=== PATIENT | female | born 1980 | race Two or more races ===

== ENCOUNTER 2016-09-26 17:09 | Emergency (ER) | payer OTHER ==
[~2016-09-26] VITALS: Ht 167.6 cm; Wt 154.5 kg
[2016-09-26 17:20] VITALS: BP 170/89
--- NOTE | 2016-09-26 17:56 | PHYS DOC ---
General Chief Complaint: VAGINAL BLEEDING Stated Complaint: VAGINAL BLEED/LOWER BACK PAIN Time Seen by MD: 17:15 Source: patient, old records Exam Limitations: no limitations Problems: History of Present Illness Initial Comments Pt is 36/F to ED c/o vaginal bleeding, right flank pain. Pt has h/o irregular menses, states that current period began 09/11 described as "slow" pt reports approximately 4 pads/day the first week. Starting on the , pt says menses increased reportedly changing pads every two hours. ( three days ago) she reports they slowed to 4 pads/day. She thought period concluded yesterday, reports no blood on pads from waking all day. "No bleeding at all yesterday, except for a drop in my urine yesterday evening." Today she says she felt overwhelmingly tired and sleepy, she took a nap and awoke at 1300 bleeding heavily again. Reports numerous clots passed while voiding today. Pt also reports that for the past few days she's had increasing right flank discomfort, mild to moderate described as aching, with concomitant urinary frequency/hesitancy. Pt is has healthy 17 y/o, follows with Dr Tee PCP no [employer]. No measured fevers, no chills/sweats/n/v/d/coagulopathy/cp/sob/DUENAS/focal weakness. No prearrival treatment. ED VS: 97, 70, 170/89, 99% RA Timing/Duration: changing over time (2 wks) Severity/Quality: severe, cramping Location: right flank Radiation: none Activities at Onset: other Prior Genitourinary Problems: similar symptoms (h/o irregular menses, none as severe as current sx) Sexual Rillito History: single partner (monogamous unprotected x 3 yrs) Modifying Factors: worse with urinating Associated Symptoms: lower back pain, polyuria, urinary frequency, other Allergies: Coded Allergies: No Known Drug Allergies (Unverified , 07/25/15) Past Medical History Medical History: other (ovarian cyst, kidney stones, irregular menses) Surgical History: other (tonsils, R oophorectomy) Social History Smoker: non-smoker Alcohol: occasionally Drugs: none Review of Systems Constitutional: denies chills, denies diaphoresis, denies fever, malaise weakness Respiratory: denies cough, denies shortness of breath, denies wheezing Cardiovascular: denies chest pain, denies palpitations, denies syncope Gastrointestinal: denies constipation, denies diarrhea, denies nausea, denies vomiting Genitourinary: see HPI Musculoskeletal: see HPIdenies joint swelling, denies muscle pain, denies neck pain Psychiatric/Neurological: denies headache, denies numbness, denies paresthesia Hematologic/Lymphatic: denies blood clots, denies easy bleeding, denies easy bruising Physical Exam General Appearance: no apparent distress, obese HEENT: PERRL/EOMI, normal ENT inspection Neck: non-tender, supple Cardiovascular/Respiratory: regular rate, rhythm, normal peripheral pulses, no respiratory distress Gastrointestinal: normal bowel sounds, non tender, soft, no organomegaly Rectal: deferred Back: CVA tenderness (L) Extremities: normal range of motion, non-tender (2+ pitting b/l) Neurologic/Psychiatric: towel sewer II-XII nml as tested, no motor/sensory deficits, alert, normal mood/affect, oriented x 3 Skin: normal color, warm/dry Orders, Labs, Meds Pt signed out to Dr Urbano at 1800 shift change. See his documentation for results/disposition. KALLIE LAZO DO Sep 26, 2016 17:56
[2016-09-26] MEDS ORDERED: IV NORMAL SALINE 1,000ML 1,000 ML IV SCH (18:00)
[2016-09-26 18:21] LABS: BASO % 1 % (0-3); EOS # 0.2 x10^3/uL (0.0-0.7); EOS % 2 % (0-3); HEMATOCRIT 41.3 % (36.0-47.0); HEMOGLOBIN 13.6 g/dL (12.0-15.5); LYMPH # 2.9 x10^3/uL (1.0-4.8); LYMPH % 31 % (24-48); MEAN CORPUSCULAR HEMOGLOBIN 27 pg (25-35); MEAN CORPUSCULAR HGB CONC 33 g/dL (31-37); MEAN CORPUSCULAR VOLUME 83 fL (79-100); MONO # 0.6 x10^3/uL (0.0-1.1); MONO % 6 % (0-9); NEUT # 5.7 x10^3uL (1.8-7.7); NEUT % 60 % (31-73); PLATELET COUNT 290 x10^3/uL (140-400); RED BLOOD COUNT 4.95 x10^6/uL (3.50-5.40); RED CELL DISTRIBUTION WIDTH 14.5 % (11.5-14.5); WHITE BLOOD COUNT 9.5 x10^3/uL (4.0-11.0)
[2016-09-26 18:23] LABS: CALCIUM 9.2 mg/dL (8.5-10.1); CREATININE 0.9 mg/dL (0.6-1.0); GFR 71.7; POTASSIUM 3.7 mmol/L (3.5-5.1)
--- NOTE | 2016-09-26 18:36 | RAD ---
Examination: Ultrasound pelvis. HISTORY History of menorrhagia, right ovarian cyst status post fallopian tube removed. COMPARISON None available. FINDINGS The uterus measures 8.9 x 5.6 x 4.6 centimeters. The endometrium measures 6.7 millimeters in thickness. The right ovary could not be identified. The left ovary measures 3.5 x 2.5 x 2.6 centimeters. Small amount of free fluid identified in the cul-de-sac. Examination limited due to patient body habitus. IMPRESSION Small amount of free fluid identified in the pelvis. The right ovary could not be identified. Otherwise unremarkable exam. Electronically signed by: Bill Bennett (Sep 26, 2016 18:35:13)
[2016-09-26 18:52] LABS: BILIRUBIN,URINE NEG (NEG); CLARITY,URINE TURBID; COLOR,URINE YELLOW; GLUCOSE,URINE NEG (NEG)
[2016-09-26 18:53] LABS: BACTERIA,URINE 0 /HPF (0-FEW); NITRITE,URINE NEG (NEG); RBC,URINE >40 /HPF (0-2); SQUAMOUS EPITHELIAL CELL,UR MANY /LPF; UROBILINOGEN,URINE 0.2 mg/dL (0.2 mg/dL)
[2016-09-26] MEDS ORDERED: CEPH-264 PO (19:19)
[2016-09-26] MEDS ORDERED: IV NORMAL SALINE 50ML 50 ML ONE (19:20)
[2016-09-26] MEDS ORDERED: CEFTRIAXONE SODIUM 1 GM VIAL IV ONE (19:20)
[2016-09-26] MEDS ORDERED: CEFTRIAXONE SODIUM 1 GM in IV NORMAL SALINE 50ML 50 ML IV ONE (19:30)
[2016-09-26] MEDS ORDERED: [UNRECOGNIZED DRUG - CODE] PO (20:45)
[2016-09-26] MEDS ORDERED: ESTROGENS, CONJUGATED 25 MG VIAL IM ONE (21:30)
[2016-09-26] MEDS ORDERED: OXYCODONE/APAP 10/325 TABLET. ONE (23:22)
== END 2016-09-26 23:34 | disposition home or self-care (01) ==
LOC: ER 17:09
DX: N93.8 Other specified abnormal uterine and vaginal bleeding (principal); R10.9 Unspecified abdominal pain; Z90.721 Acquired absence of ovaries, unilateral
CPT/HCPCS: 36415; 76856; 80048; 81001; 84702; 85027; 85610; 85730; 87086; 96361; 96365; 96372; 99285; J0696; J1410; J7030

== ENCOUNTER → 2016-09-30 | Outpatient (CLI) | payer OTHER ==
[2016-09-26 17:20] VITALS: BP 170/89
[~2016-09-30] MED LIST: CEPH-264 PO; [UNRECOGNIZED DRUG - CODE] PO
[2016-09-30 10:28] LABS: ALBUMIN 3.9 g/dL (3.4-5.0); ALBUMIN/GLOBULIN RATIO 0.9 (1.0-1.7); CALCIUM 9.2 mg/dL (8.5-10.1); GFR 63.5; POTASSIUM 4.1 mmol/L (3.5-5.1); TOTAL BILIRUBIN 0.8 mg/dL (0.2-1.0); TOTAL PROTEIN 8.3 g/dL (6.4-8.2)
[2016-09-30 13:25] LABS: BASO % 0 % (0-3); EOS # 0.2 x10^3/uL (0.0-0.7); EOS % 3 % (0-3); HEMATOCRIT 45.8 % (36.0-47.0); HEMOGLOBIN 14.9 g/dL (12.0-15.5); LYMPH # 2.9 x10^3/uL (1.0-4.8); LYMPH % 36 % (24-48); MEAN CORPUSCULAR HEMOGLOBIN 27 pg (25-35); MEAN CORPUSCULAR HGB CONC 33 g/dL (31-37); MEAN CORPUSCULAR VOLUME 84 fL (79-100); MONO # 0.5 x10^3/uL (0.0-1.1); MONO % 7 % (0-9); NEUT # 4.5 x10^3uL (1.8-7.7); NEUT % 54 % (31-73); PLATELET COUNT 272 x10^3/uL (140-400); RED BLOOD COUNT 5.48 x10^6/uL (3.50-5.40); RED CELL DISTRIBUTION WIDTH 14.4 % (11.5-14.5); WHITE BLOOD COUNT 8.2 x10^3/uL (4.0-11.0)
[2016-09-30 18:07] LABS: DHEA SO4 228.2 ug/dL (84.8-378.0); ESTRADIOL LEVEL 97.2 pg/mL (.); FSH 5.5 mIU/mL (.); LUTEINIZING HORMONE 8.2 mIU/mL (.); PROLACTIN 24.4 ng/mL (4.8-23.3)
[2016-09-30 19:32] LABS: THYROID STIM HORMONE (TSH) 2.442 uIU/mL (0.358-3.740)
[2016-10-01 01:09] LABS: HEMOGLOBIN A1C 5.7 % (4.8-5.6)
[2016-10-01 14:11] LABS: INSULIN LEVEL 28.2 uIU/mL (2.6-24.9)
== END | disposition home or self-care (01) ==
LOC: LAB 08:33
PROVIDERS: ATTEND Obstetrics & Gynecology
DX: N93.8 Other specified abnormal uterine and vaginal bleeding (principal)
CPT/HCPCS: 36415; 80053; 80061; 82627; 82670; 83001; 83002; 83036; 83525; 84146; 84402; 84403; 84443; 85027

== ENCOUNTER 2017-01-23 17:32 | Emergency (ER) | payer OTHER ==
[~2017-01-23] VITALS: Ht 167.6 cm; Wt 154.5 kg
[~2017-01-23 17:32] MED LIST changes: +[UNRECOGNIZED DRUG - CODE] PO; -[UNRECOGNIZED DRUG - CODE] PO
[2017-01-23 17:46] VITALS: BP 160/75
[2017-01-23] MEDS ORDERED: traMADol 50 MG TABLET PO ONE (18:30)
[2017-01-23] MEDS ORDERED: SULF1TAB24 PO (19:09)
[2017-01-23] MEDS ORDERED: TRAM-48 PO (19:09)
--- NOTE | 2017-01-23 19:09 | PHYS DOC ---
Past History Past Medical History: Ovarian Cyst Past Surgical History: Other Alcohol Use: Occasionally Drug Use: None Adult General Chief Complaint Chief Complaint: LOWER EXTREMITY SWELLING HPI HPI Patient is a 36-year-old female who presents to the ER today secondary to pain and swelling to her right pretibial region that's been there for approximately 2 -3 weeks now. Patient reports that she saw her PCP about 2 weeks ago and was told that she might have a small clot in the anterior tibial area. At that time she was also diagnosed with urinary tract infection and was started on antibiotic which the patient believes was Keflex. Patient presents here today secondary to the pain being persistent and the rash not resolving. Patient reports that she works at a [employer] all day is on her feet and she reports today she was unable to work secondary to the pain. Patient reports that she is concerned that she might have a blood clot to that area. Patient denies any other symptomatology. Patient has any recent fevers shakes chills nausea vomiting diarrhea chest pain shortness of breath cough cold runny nose. Patient denies any history of DVT or PE in the past. Review of systems: Constitutional: Denies fever or chills Eyes: Denies change in visual acuity, redness, or eye pain HENT: Denies nasal congestion or sore throat All other review systems are negative except as documented in the history of present illness portion. Physical exam: Constitutional: Well developed, well nourished, no acute distress, non-toxic appearance. HENT: Normocephalic, atraumatic, bilateral external ears normal, nose normal. Eyes: EOMI, conjunctiva normal, no discharge. Neck: Normal range of motion, no tenderness, supple, no stridor. Cardiovascular:Heart rate regular rhythm Lungs & Thorax: Bilateral breath sounds clear to auscultation no respiratory distress Abdomen: Bowel sounds normal, soft, no tenderness, no masses, no pulsatile masses. Skin: Patient with 2 discrete papular lesions that are raised erythematous and tender with no lymphangitic streaking. It is unclear whether not this is a possible folliculitis. It does not appear to be an abscess. Rash is not highly consistent was erythema nodosum. No significant warmth. Extremities: No tenderness, no cyanosis, no clubbing, ROM intact, no edema. Neurologic: Alert and oriented X 3, normal motor function, normal sensory function, no focal deficits noted. Psychologic: Affect normal, judgement normal, mood normal. Patient is concerned that this might be a blood clot. I discussed with the patient that the pretibial region is an extremely unlikely area for a significant DVT. Patient does make the point that if there is a clot in that area could she possibly have clots in other parts of her legs. Patient is here requesting a ultrasound of her right lower 70 to put her mind or rest. I have advised patient that this is highly unlikely although not impossible. Given her concerns we have obtained an ultrasound of her right lower 70 rule out DVT. Ultrasound of right lower 70 reveals no DVT. Assessment and plan This is a 36-year-old female who presents with a rash that is nodular papular unclear etiology. This might be a folliculitis. We will start her on Keflex and will put her on Ultram to assist her with her pain. Patient's ultrasound was negative for DVT. Patient be discharged with instructions to follow-up with her primary care physician for further evaluation and possible dermatological referral. Current Medications Current Medications Current Medications Medications (Trade) Dose Ordered Sig/Jasmeet Start Time Stop Time Status Last Admin Dose Admin Tramadol HCl (Ultram) 50 mg 1X ONCE 01/23/17 18:30 01/23/17 18:31 DC 01/23/17 18:20 50 MG Allergies Allergies Allergies Coded Allergies Type Severity Reaction Last Updated Verified No Known Drug Allergies 07/25/15 No Current Patient Data Vital Signs Vital Signs Date Time Temp Pulse Resp B/P (MAP) Pulse Ox O2 Delivery O2 Flow Rate FiO2 01/23/17 17:46 98.5 79 16 97 EKG EKG [] Radiology/Procedures Radiology/Procedures [] Course & Med Decision Making Course & Med Decision Making Pertinent Labs and Imaging studies reviewed. (See chart for details) [] Dragon Disclaimer Dragon Disclaimer This chart was dictated in whole or in part using Voice Recognition software in a busy, high-work load, and often noisy Emergency Department environment. It may contain unintended and wholly unrecognized errors or omissions. Departure Departure: Impression: Primary Impression: Skin rash Disposition: HOME, SELF-CARE Condition: STABLE Referrals: MOISES MEJIAS MD (PCP) Patient Instructions: Folliculitis, Rash Additional Instructions: Thank you for allowing us to participate in your care today. Followup with your primary care physician in 3 days if your symptoms do not improve. Call your Primary Doctor tomorrow and inform them of your visit today. If you do not have a primary care provider you can ask for a list of our primary care providers. Return to the emergency department you have any new or concerning findings. This should be evaluated by the primary care physician and any necessary consulting services for continued management within a few days after discharge. Return to emergency room if you have any new or concerning symptoms including but not limited to fever, chills, nausea, vomiting, intractable pain, any new rashes, chest pain, shortness of air, uncontrolled bleeding, difficulty breathing, and/or vision loss. You may have been prescribed medication that can change in your level of thinking and ability to operate machinery. These medications include hydrocodone and Ativan. Also, Benadryl has been known to do this as well. Be sure to check with your pharmacist and ask if the medications you've prescribed can affect your level of consciousness. I recommend not operating heavy machinery or driving while on medication such as these. The cause of the nodules on your leg are unclear. This may be secondary to a rheumatological issue versus infectious issue. As we discussed there is a small possibility this could be erythema nodosum. We will initiate therapy for a possible folliculitis with Bactrim and have a follow-up with her primary care doctor to see if she can refer you to a rate reviewer for reevaluation if the rash persists. Scripts Tramadol Hcl (ULTRAM) 50 Mg Tablet 50 MG PO PRN Q6HRS Y for PAIN, #20 TAB Prov: GABBY DENISE MD 01/23/17 Sulfamethoxazole/Trimethoprim (BACTRIM DS TABLET) 1 Each Tablet 2 TAB PO BID, #40 TAB Prov: GABBY DENISE MD 01/23/17 GABBY DENISE MD Jan 23, 2017 19:09
--- NOTE | 2017-01-23 19:23 | RAD ---
Right leg venous Doppler study: Clinical indications: Right leg swelling and pain for 2 weeks. Findings: Duplex sonography (including payton scale evaluation and color flow and waveform spectral analysis) of the proximal aspect of the greater saphenous vein and proximal aspect of the profunda femoral vein and the entire length of the common femoral and superficial femoral and popliteal veins and the tibioperoneal trunk and the proximal aspect of the posterior tibial and peroneal veins of the right leg was performed. Normal compressibility, augmentation of color Doppler flow after calf compression, and respiratory variation of Doppler flow is seen. Thus, there are no sonographic findings of deep venous thrombosis within these veins. Impression: There are no sonographic findings of deep venous thrombosis within the veins discussed above of the right lower extremity. Electronically signed by: Stephan Marcelo MD (01/23/2017 7:20 PM) [facility]
== END 2017-01-23 19:55 | disposition home or self-care (01) ==
LOC: ER 17:32
DX: R21 Rash and other nonspecific skin eruption (principal); M79.661 Pain in right lower leg; R22.41 Localized swelling, mass and lump, right lower limb
CPT/HCPCS: 93971; 99284-25

== ENCOUNTER 2017-06-08 14:20 | Emergency (ER) | payer OTHER ==
[~2017-06-08 14:20] MED LIST changes: +SULF1TAB24 PO; +TRAM-48 PO
[2017-06-08 15:34] LABS: INFLUENZA A PATIENT NEGATIVE (NEGATIVE); INFLUENZA B PATIENT NEGATIVE (NEGATIVE)
[2017-06-08] MEDS ORDERED: ONDA4TAB10 PO (16:44)
[2017-06-08] MEDS ORDERED: NAPR-683 PO (16:44)
--- NOTE | 2017-06-08 16:44 | PHYS DOC ---
Past History Past Medical History: Ovarian Cyst Past Surgical History: Other Alcohol Use: Occasionally Drug Use: Marijuana Social History Narrative: none recent Adult General Chief Complaint Chief Complaint: FLU SYMPTOM HPI HPI 36-year-old male patient complaining of nasal congestion and earache and sore throat with nausea and myalgia since yesterday associated with subjective fever and generalized weakness. Patient denies vomiting, diarrhea, sick contact, urinary symptom, cough and shortness of breath and chest pain. Patient states she had the same symptom couple weeks ago that improved with rest. Review of Systems Review of Systems Constitutional: Reports fever and chills Eyes: Denies change in visual acuity, redness, or eye pain [] HENT: Reports nasal congestion and sore throat and earache Respiratory: Denies cough or shortness of breath [] Cardiovascular: No additional information not addressed in HPI [] GI: Denies abdominal pain, vomiting, bloody stools or diarrhea , reports nausea[ ] : Denies dysuria or hematuria [] Musculoskeletal: Denies back pain or joint pain , reports myalgia[] Integument: Denies rash or skin lesions [] Neurologic: Denies headache, focal weakness or sensory changes [] Endocrine: Denies polyuria or polydipsia [] All other systems were reviewed and found to be within normal limits, except as documented in this note. Allergies Allergies Allergies Coded Allergies Type Severity Reaction Last Updated Verified No Known Drug Allergies 07/25/15 No Physical Exam Physical Exam Constitutional: Well developed, well nourished, mild distress, non-toxic appearance, morbid obesity. [] HENT: Normocephalic, atraumatic, bilateral external ears normal, oropharynx moist, no oral exudates, nose normal. [] Eyes: PERRLA, EOMI, conjunctiva normal, no discharge. [] Neck: Normal range of motion, no tenderness, supple, no stridor. [] Cardiovascular:Heart rate regular rhythm, no murmur [] Lungs & Thorax: Bilateral breath sounds clear to auscultation [] Abdomen: Bowel sounds normal, soft, no tenderness, no masses, no pulsatile masses. [] Skin: Warm, dry, no erythema, no rash. [] Back: No tenderness, no CVA tenderness. [] Extremities: No tenderness, no cyanosis, no clubbing, ROM intact, no edema. [] Neurologic: Alert and oriented X 3, normal motor function, normal sensory function, no focal deficits noted. [] Psychologic: Affect normal, judgement normal, mood normal. [] Current Patient Data Vital Signs Vital Signs Date Time Temp Pulse Resp B/P (MAP) Pulse Ox O2 Delivery O2 Flow Rate FiO2 06/08/17 14:20 97.9 68 18 95 Room Air Lab Results Laboratory Tests Test 06/08/17 14:54 Influenza Type A (Rapid) Negative (NEGATIVE) Influenza Type B (Rapid) Negative (NEGATIVE) EKG EKG [] Radiology/Procedures Radiology/Procedures [] Course & Med Decision Making Course & Med Decision Making Pertinent Labs reviewed. (See chart for details) [] Dragon Disclaimer Dragon Disclaimer This electronic medical record was generated, in whole or in part, using a voice recognition dictation system. Departure Departure: Impression: Primary Impression: Viral illness Additional Impression: Nausea Disposition: HOME, SELF-CARE (At 1642) Condition: STABLE Referrals: MOISES MEJIAS MD (PCP) Patient Instructions: Viral Syndrome Additional Instructions: Get plenty of liquids Follow-up with your primary care physician in 3-5 days or return to ER if not getting better Scripts Ondansetron (ZOFRAN ODT) 4 Mg Tab.rapdis 4 MG PO TID PRN Y for NAUSEA, #12 Prov: HOME MALONE MD 06/08/17 Naproxen (NAPROSYN) 500 Mg Tablet 500 MG PO BID, #14 Prov: HOME MALONE MD 06/08/17 Problem Qualifiers HOME MALONE MD Jun 08, 2017 16:44
[2017-06-08 16:56] VITALS: BP 142/91
== END 2017-06-08 16:56 | disposition home or self-care (01) ==
LOC: ER 14:20
DX: B34.9 Viral infection, unspecified (principal); R53.1 Weakness; F12.10 Cannabis abuse, uncomplicated
CPT/HCPCS: 87804; 99284

== ENCOUNTER 2018-01-15 23:27 | Emergency (ER) | payer SELFPAY ==
[~2018-01-15] VITALS: Ht 165.1 cm; Wt 158.2 kg
[~2018-01-15 23:27] MED LIST changes: +NAPR-683 PO; +ONDA4TAB10 PO
--- NOTE | 2018-01-15 23:30 | ED.ADGEN ---
Past History Past Medical History: Kidney Stones, Ovarian Cyst, UTI Past Surgical History: Other Alcohol Use: Occasionally Drug Use: Marijuana Adult General Chief Complaint Chief Complaint ".. I got this severe pain in my Lt. flank.. it feels like a kidney stone... I ve had them twice before... and I had a UTI with them... I ve also had some diarrhea today.. and vomited twice..." My last kidney stones were always on my right side.." HPI HPI Patient is a 37 year old female who presents with above hx and complaints of severe left flank pain. Patient reports vomiting 2 and episodes of diarrhea. Patient denies any intake bad food. Her last meal consisted of Spreadshirt. Patient was at the [employer] yesterday drinking beer and eating at [employer]. No recent travel. No specific ill contacts. Patient denies any trauma. Patient denies any specific ill contacts. Patient denies any vaginal discharge. Patient' s ministration has just ended. History of colitis or ulcerative colitis or irritable bowel or diverticular disease. Has hx of ovarian cyst. Review of Systems Review of Systems Constitutional: Denies fever or chills [] Eyes: Denies change in visual acuity, redness, or eye pain [] HENT: Denies nasal congestion or sore throat [] Respiratory: Denies cough or shortness of breath [] Cardiovascular: No additional information not addressed in HPI [] GI: Complaints of abdominal pain, nausea, vomiting,and diarrhea [] : Denies dysuria or hematuria [] Musculoskeletal: Lt flank pain. Integument: Denies rash or skin lesions [] Neurologic: Denies headache, focal weakness or sensory changes [] Endocrine: Denies polyuria or polydipsia [] All other systems were reviewed and found to be within normal limits, except as documented in this note. Family History Family History Noncontributory Current Medications Current Medications Current Medications Medications (Trade) Dose Ordered Sig/Jasmeet Start Time Stop Time Status Last Admin Dose Admin Famotidine (Pepcid Vial) 20 mg 1X ONCE 01/16/18 00:00 01/16/18 00:58 DC 01/16/18 00:22 20 MG Ketorolac Tromethamine (Toradol) 30 mg 1X ONCE 01/16/18 00:15 01/16/18 00:58 DC 01/16/18 00:17 30 MG Lactated Ringer's 1,000 ml @ 1,000 mls/hr Q1H 01/15/18 23:54 01/16/18 00:57 DC 01/15/18 00:14 1,000 MLS/HR Ondansetron HCl (Zofran) 4 mg 1X ONCE 01/16/18 00:00 01/16/18 00:58 DC 01/16/18 00:19 4 MG Tamsulosin HCl (Flomax) 0.4 mg STK-MED ONCE 01/16/18 02:59 01/16/18 03:19 DC Trimethoprim/ Sulfamethoxazole (Bactrim Ds) 1 tab 1X ONCE 01/16/18 00:00 01/16/18 00:58 DC 01/16/18 00:13 1 TAB Allergies Allergies Allergies Coded Allergies Type Severity Reaction Last Updated Verified No Known Drug Allergies 07/25/15 No Physical Exam Physical Exam Constitutional: In acute distress, non-toxic appearance. [] HENT: Normocephalic, atraumatic, bilateral external ears normal, oropharynx moist, no oral exudates, nose normal. [] Eyes: PERRLA, EOMI, conjunctiva normal, no discharge. [] Neck: Normal range of motion, no tenderness, supple, no stridor. [] Cardiovascular:Heart rate regular rhythm, no murmur [] Lungs & Thorax: Bilateral breath sounds clear to auscultation [] Abdomen: Bowel sounds normal, soft, no tenderness, no masses, no pulsatile masses. [] Obese. Skin: Warm, dry, no erythema, no rash. [] Back: No tenderness, Lt CVA tenderness. [] Extremities: No tenderness, no cyanosis, no clubbing, ROM intact, no edema. [] Neurologic: Alert and oriented X 3, normal motor function, normal sensory function, no focal deficits noted. [] Psychologic: Affect anxious, judgement normal, mood normal. [] Current Patient Data Vital Signs Vital Signs Date Time Temp Pulse Resp B/P (MAP) Pulse Ox O2 Delivery O2 Flow Rate FiO2 01/16/18 03:08 57 20 145/97 (113) 96 Room Air 01/15/18 23:27 98.5 Lab Results Laboratory Tests Test 01/15/18 22:55 01/15/18 23:34 01/15/18 23:46 01/16/18 00:40 POC Urine HCG, Qualitative hcg negative (Negative) Urine Collection Type Unknown Urine Color Yellow Urine Clarity Hazy Urine pH 5.5 Urine Specific Hoffmeister >=1.030 Urine Protein Trace (NEG-TRACE) Urine Glucose (UA) Neg mg/dL (NEG) Urine Ketones (Stick) Neg mg/dL (NEG) Urine Blood Large (NEG) Urine Nitrite Neg (NEG) Urine Bilirubin Neg (NEG) Urine Urobilinogen Dipstick 0.2 mg/dL (0.2 mg/dL) Urine Leukocyte Esterase Trace (NEG) Urine RBC Occ /HPF (0-2) Urine WBC 11-20 /HPF (0-4) Urine Squamous Epithelial Cells Few /LPF Urine Bacteria Few /HPF (0-FEW) Urine Opiates Screen Neg (NEG) Urine Methadone Screen Neg (NEG) Urine Barbiturates Neg (NEG) Urine Phencyclidine Screen Neg (NEG) Urine Amphetamine/Methamphetamine Neg (NEG) Urine Benzodiazepines Screen Neg (NEG) Urine Cocaine Screen Neg (NEG) Urine Cannabinoids Screen Neg (NEG) Urine Ethyl Alcohol Neg (NEG) Sodium Level 143 mmol/L (136-145) Potassium Level 3.8 mmol/L (3.5-5.1) Chloride Level 106 mmol/L (98-107) Carbon Dioxide Level 26 mmol/L (21-32) Anion Gap 11 (6-14) Blood Urea Nitrogen 11 mg/dL (7-20) Creatinine 0.9 mg/dL (0.6-1.0) Estimated GFR (Cockcroft-Gault) 71.3 Glucose Level 125 mg/dL (70-99) H Calcium Level 8.7 mg/dL (8.5-10.1) Total Bilirubin 0.5 mg/dL (0.2-1.0) Direct Bilirubin 0.1 mg/dL (0.0-0.2) Aspartate Amino Transferase (AST) 30 U/L (15-37) Alanine Aminotransferase (ALT) 41 U/L (14-59) Alkaline Phosphatase 66 U/L (46-116) Total Protein 7.6 g/dL (6.4-8.2) Albumin 3.6 g/dL (3.4-5.0) Lipase 133 U/L (73-393) White Blood Count 12.0 x10^3/uL (4.0-11.0) H Red Blood Count 5.00 x10^6/uL (3.50-5.40) Hemoglobin 13.8 g/dL (12.0-15.5) Hematocrit 41.0 % (36.0-47.0) Mean Corpuscular Volume 82 fL (79-100) Mean Corpuscular Hemoglobin 28 pg (25-35) Mean Corpuscular Hemoglobin Concent 34 g/dL (31-37) Red Cell Distribution Width 14.1 % (11.5-14.5) Platelet Count 321 x10^3/uL (140-400) Neutrophils (%) (Auto) 78 % (31-73) H Lymphocytes (%) (Auto) 15 % (24-48) L Monocytes (%) (Auto) 6 % (0-9) Eosinophils (%) (Auto) 1 % (0-3) Basophils (%) (Auto) 1 % (0-3) Neutrophils # (Auto) 9.3 x10^3uL (1.8-7.7) H Lymphocytes # (Auto) 1.8 x10^3/uL (1.0-4.8) Monocytes # (Auto) 0.7 x10^3/uL (0.0-1.1) Eosinophils # (Auto) 0.1 x10^3/uL (0.0-0.7) Basophils # (Auto) 0.1 x10^3/uL (0.0-0.2) Prothrombin Time 10.3 SEC (9.4-11.4) Prothrombin Time INR 1.0 (0.9-1.1) PTT 23 SEC (23-33) EKG EKG [] Radiology/Procedures Radiology/Procedures My interpretation of Ab. film shows no free air under diaphragm. Non acute cardiopulmonary findings. Lt kidney appears enlarged. Non-specific bowel gas pattern. My interpretation of CT abd. shows distal lt stone Lt. . Mild hydro nephrosis. Course & Med Decision Making Course & Med Decision Making Pertinent Labs and Imaging studies reviewed. (See chart for details). Push fluids. Save stone if passed. Push Vit. C drinks. Take Bactrim DS twice a way x 7 days. Follow up with primary and urology. Zofran 8 up to 4 x day for nausea and vomiting. Return if any concerns. [] Final Impression Final Impression 1. Nausea, vomiting and diarrhea 2. lt. Renal colic 3. Hematuria/ UTI[] 4. Leukocytosis 5. DM- Elevated Glucose 125 Dragon Disclaimer Dragon Disclaimer This electronic medical record was generated, in whole or in part, using a voice recognition dictation system. DELPHINE TALAVERA MD Jan 15, 2018 23:30
[2018-01-15] MEDS ORDERED: IV RINGERS SOLUTION,LACTATED 1,000 ML IV SCH (23:54)
[2018-01-16] MEDS ORDERED: FAMOTIDINE 20 MG/2 ML VIAL IVP ONE
[2018-01-16] MEDS ORDERED: SMZ/TMP 800/160MG TABLET. PO ONE
[2018-01-16] MEDS ORDERED: ONDANSETRON PF 4 MG/2 ML VIAL. IV ONE
[2018-01-16] MEDS ORDERED: KETOROLAC 30 MG/ML VIAL. IV ONE (00:15)
[2018-01-16 00:18] LABS: ALBUMIN 3.6 g/dL (3.4-5.0); CALCIUM 8.7 mg/dL (8.5-10.1); CREATININE 0.9 mg/dL (0.6-1.0); DIRECT BILIRUBIN 0.1 mg/dL (0.0-0.2); GFR 71.3; TOTAL BILIRUBIN 0.5 mg/dL (0.2-1.0); TOTAL PROTEIN 7.6 g/dL (6.4-8.2)
[2018-01-16 00:18] LABS: BARBITURATES NEG (NEG); BENZODIAZEPINES NEG (NEG); CANNABINOIDS NEG (NEG); COCAINE NEG (NEG); METHADONE NEG (NEG); OPIATES NEG (NEG); PHENCYCLIDINE NEG (NEG)
[2018-01-16 00:19] LABS: BILIRUBIN,URINE NEG (NEG); CLARITY,URINE HAZY; COLOR,URINE YELLOW; GLUCOSE,URINE NEG (NEG); NITRITE,URINE NEG (NEG); RBC,URINE OCC /HPF (0-2); UROBILINOGEN,URINE 0.2 mg/dL (0.2 mg/dL)
[2018-01-16 00:20] LABS: BACTERIA,URINE FEW /HPF (0-FEW); SQUAMOUS EPITHELIAL CELL,UR FEW /LPF
[2018-01-16 00:21] LABS: AMPHETAMINE/METHAMPHETAMINE NEG (NEG)
[2018-01-16 00:21] LABS: POTASSIUM 3.8 mmol/L (3.5-5.1)
[2018-01-16 00:58] LABS: BASO # 0.1 x10^3/uL (0.0-0.2); BASO % 1 % (0-3); EOS # 0.1 x10^3/uL (0.0-0.7); EOS % 1 % (0-3); HEMOGLOBIN 13.8 g/dL (12.0-15.5); LYMPH # 1.8 x10^3/uL (1.0-4.8); LYMPH % 15 % (24-48); MEAN CORPUSCULAR HEMOGLOBIN 28 pg (25-35); MEAN CORPUSCULAR HGB CONC 34 g/dL (31-37); MEAN CORPUSCULAR VOLUME 82 fL (79-100); MONO # 0.7 x10^3/uL (0.0-1.1); MONO % 6 % (0-9); NEUT # 9.3 x10^3uL (1.8-7.7); NEUT % 78 % (31-73); PLATELET COUNT 321 x10^3/uL (140-400); RED CELL DISTRIBUTION WIDTH 14.1 % (11.5-14.5)
--- NOTE | 2018-01-16 02:38 | RAD ---
CT abdomen and pelvis without contrast COMPARISON: CT abdomen and pelvis 07/25/2015 TECHNIQUE: Multiple CT images of the abdomen and pelvis were obtained without contrast. *One or more of the following individualized dose reduction techniques were utilized for this examination: 1. Automated exposure control. 2. Adjustment of the mA and/or kV according to patient size. 3. Use of iterative reconstruction technique. FINDINGS: Heart size is normal. Visualized lung bases are clear. Evaluation of the solid abdominal pelvic viscera, lymphadenopathy and vasculature is limited in the absence of intravenous contrast. Mild hepatic steatosis. Gallbladder, spleen, adrenal glands, and pancreas are grossly unremarkable. There is a 3 mm obstructive calculus in the left UVJ series 2/image 137 with mild upstream hydroureter nephrosis. 2 mm obstructive calculus in the superior pole the left kidney. A few nonobstructive right renal calculi, largest in the inferior pole measuring 3 mm series 2/image 69. No right hydroureter nephrosis. Abdominal aorta normal in caliber. Small and large bowel loops are normal in caliber without obstruction. Urinary bladder decompressed. Uterus and adnexa grossly unremarkable. IMPRESSION: 1. 3 mm obstructive left UVJ calculus with mild upstream hydroureteronephrosis. 2. Additional nonobstructive bilateral nephrolithiasis. 3. Hepatic steatosis. Electronically signed by: Robert Holman MD (01/16/2018 2:34 AM) [facility]
[2018-01-16] MEDS ORDERED: HYDR-79 PO (02:51)
[2018-01-16] MEDS ORDERED: ONDA8TAB12 PO (02:51)
[2018-01-16] MEDS ORDERED: SULF1TAB24 PO (02:51)
[2018-01-16] MEDS ORDERED: TAMSULOSIN 0.4 MG CAP.ER.24H. PO ONE ×2 (02:59→03:00)
[2018-01-16 03:08] VITALS: BP 145/97
--- NOTE | 2018-01-16 08:28 | RAD ---
EXAM:ACUTE ABDOMEN SERIES DATE: 01/15/2018 11:54 PM CLINICAL INDICATION: left flank pain, low pelvic pain, hx kidney stone on the right
diarrhea COMPARISON: None. FINDINGS: Chest: The heart is not enlarged. Mediastinal and hilar contours are normal. No focal parenchymal airspace opacity. No pleural effusion or pneumothorax. Abdomen: No abnormal small or large bowel dilatation to suggest bowel obstruction. A few scattered calcifications projecting over the pelvis, possibly pelvic phleboliths although ureteral calculi are not excluded. No abnormal soft tissue mass effect. No evidence for free intraperitoneal gas. IMPRESSION: 1. No radiographic evidence for acute cardiopulmonary process. 2. A few scattered calcifications projecting over the pelvis, possibly pelvic phleboliths although ureteral calculi are not excluded. 3. No evidence for bowel obstruction. Electronically signed by: Barry Arana MD (01/16/2018 8:25 AM) [facility]
[2018-01-17] MEDS ORDERED: PRED15SO46 PO (22:17)
[2018-01-17] MEDS ORDERED: CEPH500C PO (22:17)
== END 2018-01-16 03:15 | disposition home or self-care (01) ==
LOC: ER 23:27
DX: N13.2 Hydronephrosis with renal and ureteral calculous obstruction (principal); D72.829 Elevated white blood cell count, unspecified; E11.9 Type 2 diabetes mellitus without complications; N39.0 Urinary tract infection, site not specified; R19.7 Diarrhea, unspecified; Z87.440 Personal history of urinary (tract) infections; Z87.442 Personal history of urinary calculi
CPT/HCPCS: 36415; 74022; 74176; 80048; 80076; 80307; 81001; 81025; 83690; 85025; 85610; 85730; 87086; 96361; 96374; 96375; 99285; J1885; J2405; J7120; S0028; G0479

== ENCOUNTER 2018-01-17 21:20 | Emergency (ER) | payer SELFPAY ==
[~2018-01-17] VITALS: Ht 165.1 cm; Wt 158.8 kg
[~2018-01-17 21:20] MED LIST changes: +HYDR-79 PO; +ONDA8TAB12 PO
--- NOTE | 2018-01-17 21:58 | PHYS DOC ---
Past History Past Medical History: Kidney Stones, Ovarian Cyst, UTI Past Surgical History: Other Alcohol Use: Occasionally Drug Use: None Adult General Chief Complaint Chief Complaint: ALLERGIC REACTION HPI HPI Patient is a 37 year old female who presents with complaint of mouth pain. The patient states that she was seen 2 days ago in the emergency department where she was treated for urinary tract infection and a left ureteral stone. Patient was discharged on Vicoprofen, Zofran, and Bactrim. Patient states that she last took Bactrim this morning. Patient states throughout the day she has had worsening burning pain to her tongue and mouth and states that he has become very difficult for her to eat due to the pain. Patient states that she has had a similar episode in the past but did not associate this with the medication that she had taken. Patient has not noticed any rash or open sores on her skin or in her mouth. Patient denies any associated fever. Patient states that since her visit she feels that she has likely passed her stone. Patient states however that she is having dysuria at this time. Review of Systems Review of Systems Constitutional: Denies fever or chills [] Eyes: Denies change in visual acuity, redness, or eye pain [] HENT: Sore tongue, denies nasal congestion[] Respiratory: Denies cough or shortness of breath [] Cardiovascular: Denies chest pain or edema[] GI: Denies abdominal pain, nausea, vomiting, bloody stools or diarrhea [] : Dysuria, denies hematuria[] Musculoskeletal: Denies back pain or joint pain [] Integument: Denies rash or skin lesions [] Neurologic: Denies headache, focal weakness or sensory changes [] All other systems were reviewed and found to be within normal limits, except as documented in this note. Allergies Allergies Allergies Coded Allergies Type Severity Reaction Last Updated Verified No Known Drug Allergies 07/25/15 No Physical Exam Physical Exam Constitutional: Alert, afebrile, appears in mild to moderate discomfort. [] HENT: Normocephalic, atraumatic, bilateral external ears normal, oropharynx moist, no discreet bullous lesions or open sores of the mucous membranes, tongue is tender to light palpation, no oral exudates, nose normal. [] Eyes: PERRLA, EOMI, conjunctiva normal, no discharge. [] Neck: Normal range of motion, no tenderness, supple, no stridor. [] Cardiovascular:Heart rate regular rhythm, no murmur [] Lungs & Thorax: Bilateral breath sounds clear to auscultation [] Abdomen: Bowel sounds normal, soft, no tenderness, no masses, no pulsatile masses. [] Skin: Warm, dry, no erythema, no rash. [] Back: No tenderness, no CVA tenderness. [] Extremities: No tenderness, no cyanosis, no clubbing, ROM intact, no edema. [] Neurologic: Alert and oriented X 3, normal motor function, normal sensory function, no focal deficits noted. [] Current Patient Data Vital Signs Vital Signs Date Time Temp Pulse Resp B/P (MAP) Pulse Ox O2 Delivery O2 Flow Rate FiO2 01/17/18 21:21 99.6 82 20 100 Room Air Lab Results Not performed EKG EKG Not performed[] Radiology/Procedures Radiology/Procedures Not performed[] Course & Med Decision Making Course & Med Decision Making Pertinent Labs and Imaging studies reviewed. (See chart for details) Patient does not display any discrete lesions that would be consistent with a Dubon-Aaron syndrome or TEN. I do have suspicion however that the patient is having allergic reaction symptoms to Bactrim and thus have recommended that the patient discontinue any further use of this medication. Administered 10 mg of Decadron IM. Patient was treated with Magic mouthwash in the emergency department to help with pain. Patient will be switched to Keflex for treatment of urinary tract infection. Advised close monitoring at home for development of any bullous lesions and advised that the patient return immediately to the emergency department. Recommended follow-up in 2-3 days primary doctor for evaluation. Patient voiced understanding and agreement with treatment plan. Dragon Disclaimer Dragon Disclaimer This electronic medical record was generated, in whole or in part, using a voice recognition dictation system. Departure Departure: Impression: Primary Impression: Allergic reaction caused by a drug Additional Impression: Urinary tract infection Disposition: HOME, SELF-CARE Condition: IMPROVED Referrals: PCP,[facility] (PCP) Patient Instructions: Drug Allergy, Urinary Tract Infection Additional Instructions: It is believed that you have a drug allergy to Bactrim which is a sulfa medication. Please be sure to tell any medical providers in the future that you are allergic to sulfa drugs. Follow-up with her primary doctor in 2-3 days for reevaluation. Return immediately to the emergency department if you develop worsening symptoms, especially if you develop large blisters over your body in mouth, fever, or severe fatigue and lightheadedness. Scripts Prednisolone Sod Phosphate (PREDNISOLONE SODIUM PHOSPHATE) 15 Mg/5 Ml Solution 15 MG PO BID for 5 Days, #150 MISC Prov: APPLE VENTURA MD 01/17/18 Cephalexin (CEPHALEXIN) 500 Mg Capsule 1 CAP PO BID, #14 CAP Prov: APPLE VENTURA MD 01/17/18 Problem Qualifiers Primary Impression: Allergic reaction caused by a drug Encounter type: initial encounter Qualified Codes: T78.40XA - Allergy, unspecified, initial encounter Additional Impression: Urinary tract infection Urinary tract infection type: site unspecified Hematuria presence: without hematuria Qualified Codes: N39.0 - Urinary tract infection, site not specified APPLE VENTURA MD Jan 17, 2018 21:58
[2018-01-17] MEDS ORDERED: DEXAMETHASONE SOD PHOS 10 MG/ML VIAL IM ONE (22:15)
[2018-01-17] MEDS ORDERED: LIDOCAINE 2% VISCOUS 15 ML SOLUTION. SWSW ONE (22:15)
[2018-01-17] MEDS ORDERED: MAG HYDROX/AL HYDROX/SIMETH 30 ML ORAL.SUSP PO ONE (22:15)
[2018-01-17] MEDS ORDERED: diphenhydrAMINE ORAL ELIXIR 12.5 MG/5 ML ML PO ONE (22:15)
[2018-01-17] MEDS ORDERED: PRED15SO46 PO (22:17)
[2018-01-17] MEDS ORDERED: CEPH500C PO (22:17)
[2018-01-17 22:45] VITALS: BP 146/79
[2018-01-17] MEDS ORDERED: CEPHALEXIN 250 MG CAPSULE ONE (22:45)
[2018-01-17] MEDS ORDERED: CEPHALEXIN 250 MG CAPSULE PO ONE (23:00)
== END 2018-01-17 22:45 | disposition home or self-care (01) ==
LOC: ER 21:20
DX: K13.79 Other lesions of oral mucosa (principal); K14.6 Glossodynia; T37.0X5A Adverse effect of sulfonamides, initial encounter; N39.0 Urinary tract infection, site not specified; Z87.440 Personal history of urinary (tract) infections; Z87.442 Personal history of urinary calculi; Y92.89 Other specified places as the place of occurrence of the external cause
CPT/HCPCS: 96372; 99284; J1100

== ENCOUNTER → 2018-07-26 | Outpatient (CLI) | payer BC ==
[~2018-07-26] MED LIST changes: +CEPH500C PO; +HYDR-1179 PO; -HYDR-79 PO; +PRED15SO46 PO
--- NOTE | 2018-07-26 12:00 | RAD ---
DATE: 07/26/2018 EXAM: MAMMO [facility] SCREENING BILATERAL HISTORY: Routine screening, family history of breast cancer COMPARISON: Baseline study This study was interpreted with the benefit of Computerized Aided Detection (CAD). Breast Density: HETERO The breast parenchyma is heterogenously dense, which could reduce sensitivity of mammography. Breast parenchyma level C. FINDINGS: 2-D and 3-D tomosynthesis imaging was performed in CC and MLO projections. The fibroglandular tissues are heterogeneous in a slightly nodular pattern. No spiculated mass or architectural distortion is evident. There is minimal benign type calcification. No suspicious microcalcifications are evident. IMPRESSION: There is no mammographic evidence of malignancy in either breast. BI-RADS CATEGORY: 2 BENIGN FINDING(S) RECOMMENDED FOLLOW-UP: 12M 12 MONTH FOLLOW-UP PQRS compliance statement: Patient information was entered into a reminder system with a target due date for the next mammogram. Mammography is a sensitive method for finding small breast cancers, but it does not detect them all and is not a substitute for careful clinical examination. A negative mammogram does not negate a clinically suspicious finding and should not result in delay in biopsying a clinically suspicious abnormality. "Our facility is accredited by the [employer] Mammography Program."
--- NOTE | 2018-07-26 12:40 | RAD ---
Pelvic ultrasound, 07/26/2018: HISTORY: Menorrhagia Transabdominal and transvaginal scans were obtained. The imaging was compromised by the patient's large size. The uterus was best demonstrated on transvaginal imaging. It measures 10.2 x 5.4 x 4.5 cm. The central uterine echo complex measures 1 cm in AP dimension. Several small nabothian cysts are present in the cervical region. The uterus is otherwise unremarkable. The left ovary is within normal limits in size. It contains a 1.7 cm cyst. Blood flow is present in the left ovary. The right ovary was less clearly visualized. It appears to be of normal size. The adnexal regions are otherwise unremarkable. A small amount of free fluid is noted in the cul-de-sac. This amount of fluid can be on a physiologic basis. IMPRESSION: 1. The central uterine echo complex is at the upper limits of normal in thickness. 2. Small Nabothian cysts. 3. Small left ovarian cyst. 4. Trace amount of free fluid in the cul-de-sac. Electronically signed by: Jaspal Jovel MD (07/26/2018 12:37 PM) [facility]
== END | disposition home or self-care (01) ==
LOC: US 10:21
DX: Z12.31 Encounter for screening mammogram for malignant neoplasm of breast (principal); N83.202 Unspecified ovarian cyst, left side; N88.8 Other specified noninflammatory disorders of cervix uteri
CPT/HCPCS: 76830; 76856; 77063; 77067

== ENCOUNTER 2018-09-20 21:57 | Emergency (ER) | payer BC ==
[~2018-09-20] VITALS: Ht 165.1 cm; Wt 158.8 kg
[2018-09-20] MEDS ORDERED: ONDANSETRON ODT 4 MG TAB.RAPDIS PO ONE (22:15)
[2018-09-20] MEDS ORDERED: SUMAtriptan SUCC 6 MG/0.5 ML VIAL SQ ONE (22:15)
[2018-09-20 23:23] LABS: BACTERIA,URINE FEW /HPF (0-FEW); BILIRUBIN,URINE NEG (NEG); CLARITY,URINE CLEAR; COLOR,URINE YELLOW; GLUCOSE,URINE NEG (NEG); NITRITE,URINE NEG (NEG); SQUAMOUS EPITHELIAL CELL,UR FEW /LPF; UROBILINOGEN,URINE 1 mg/dL (0.2 mg/dL)
[2018-09-20 23:41] VITALS: BP 145/97
[2018-09-21] MEDS ORDERED: DEXAMETHASONE SOD PHOS 10 MG/ML VIAL IM ONE
[2018-09-21] MEDS ORDERED: KETOROLAC 60 MG/2 ML VIAL. IM ONE
--- NOTE | 2018-09-21 00:01 | RAD ---
CT head without contrast PQRS statement: CT scans at this facility use dose reduction including either automated exposure control, iterative reconstructions, and /or weight based radiation dosing via mA and kV modification when appropriate to reduce radiation dose to as low as reasonably achievable. HISTORY: Severe headache. TECHNIQUE: [address] imaging skull base to vertex. FINDINGS: No intracranial hemorrhage, mass, hydrocephalus, extra-axial fluid collections or infarction. No acute ischemic changes evident. Orbits, mastoids, paranasal sinuses and bones are unremarkable. IMPRESSION: No acute intracranial CT abnormality. Electronically signed by: Kareem Pacheco MD (09/20/2018 11:57 PM) [facility]
--- NOTE | 2018-09-21 00:08 | PHYS DOC ---
Past History Past Medical History: Kidney Stones, Ovarian Cyst, UTI Past Surgical History: Other Alcohol Use: Occasionally Drug Use: None Adult General Chief Complaint Chief Complaint: HEADACHE HPI HPI Patient is a 38-year-old female who presents with complaint of headache for the last 2 weeks. Patient describes headache is migraine like stating that headache feels like throbbing in nature and has been around her entire head. She admits to photophobia and has had nausea and vomiting associated with the headache. Patient states that she is concerned because the headache is just not clearing up. She denies any fever. She denies any neck or back pain. Patient states that headache is worsened in bright light and with movement. She states that nothing is improving the headache. Review of Systems Review of Systems Constitutional: Denies fever or chills [] Eyes: Denies change in visual acuity, redness, or eye pain [] Respiratory: Denies cough or shortness of breath [] Cardiovascular: No additional information not addressed in HPI [] GI: Denies abdominal pain. Positive nausea and vomiting. [] Neurologic: Positive headache without focal weakness or sensory changes [] All other systems were reviewed and found to be within normal limits, except as documented in this note. Current Medications Current Medications Current Medications Medications (Trade) Dose Ordered Sig/[facility] Start Time Stop Time Status Last Admin Dose Admin Dexamethasone Sodium Phosphate (Decadron) 10 mg 1X ONCE 09/21/18 00:00 09/21/18 00:01 UNV 09/20/18 23:57 10 MG Ketorolac Tromethamine (Toradol Im) 60 mg 1X ONCE 09/21/18 00:00 09/21/18 00:01 UNV 09/20/18 23:51 60 MG Ondansetron HCl (Zofran Odt) 4 mg 1X ONCE 09/20/18 22:15 09/20/18 22:19 DC 09/20/18 22:57 4 MG Sumatriptan Succinate (Imitrex) 6 mg 1X ONCE 09/20/18 22:15 09/20/18 22:19 DC 09/20/18 22:58 6 MG Allergies Allergies Allergies Coded Allergies Type Severity Reaction Last Updated Verified Sulfa (Sulfonamide Antibiotics) Allergy Unknown tongue turns white and has burning sensation 09/20/18 Yes sulfur Allergy Unknown 09/20/18 Yes Physical Exam Physical Exam Constitutional: Well developed, well nourished, no acute distress, non-toxic appearance. [] HENT: Normocephalic, atraumatic, bilateral external ears normal, oropharynx moist, no oral exudates, nose normal. [] Eyes: PERRLA, EOMI, conjunctiva normal, no discharge. [] Neck: Normal range of motion, no tenderness, supple, no stridor. [] Cardiovascular: Regular rate and rhythm[] Lungs & Thorax: Bilateral breath sounds clear to auscultation [] Abdomen: Bowel sounds normal, soft, no tenderness. [] Skin: Warm, dry, no erythema, no rash. [] Extremities: No tenderness, no cyanosis, no clubbing, ROM intact, no edema. [] Neurologic: Alert and oriented X 3, no focal deficits noted. [] Current Patient Data Vital Signs Vital Signs Date Time Temp Pulse Resp B/P (MAP) Pulse Ox O2 Delivery O2 Flow Rate FiO2 09/20/18 23:41 76 18 145/97 (113) 94 Room Air 09/20/18 22:00 98.5 Lab Results Laboratory Tests Test 09/20/18 22:41 09/20/18 22:54 Urine Collection Type Unknown Urine Color Yellow Urine Clarity Clear Urine pH 6.5 Urine Specific [place] 1.020 Urine Protein Neg (NEG-TRACE) Urine Glucose (UA) Neg mg/dL (NEG) Urine Ketones (Stick) Trace mg/dL (NEG) Urine Blood Small (NEG) Urine Nitrite Neg (NEG) Urine Bilirubin Neg (NEG) Urine Urobilinogen Dipstick 1 mg/dL (0.2 mg/dL) Urine Leukocyte Esterase Large (NEG) Urine RBC 1-2 /HPF (0-2) Urine WBC 5-10 /HPF (0-4) Urine Squamous Epithelial Cells Few /LPF Urine Bacteria Few /HPF (0-FEW) POC Urine HCG, Qualitative hcg negative (Negative) EKG EKG [] Radiology/Procedures Radiology/Procedures [] Impressions: PROCEDURE: CT HEAD WO CONTRAST CT head without contrast PQRS statement: CT scans at this facility use dose reduction including either automated exposure control, iterative reconstructions, and /or weight based radiation dosing via mA and kV modification when appropriate to reduce radiation dose to as low as reasonably achievable. HISTORY: Severe headache. TECHNIQUE: [address] imaging skull base to vertex. FINDINGS: No intracranial hemorrhage, mass, hydrocephalus, extra-axial fluid collections or infarction. No acute ischemic changes evident. Orbits, mastoids, paranasal sinuses and bones are unremarkable. IMPRESSION: No acute intracranial CT abnormality. Electronically signed by: Kareem Pacheco MD (09/20/2018 11:57 PM) Course & Med Decision Making Course & Med Decision Making Pertinent Labs and Imaging studies reviewed. (See chart for details) [] Dragon Disclaimer Dragon Disclaimer This electronic medical record was generated, in whole or in part, using a voice recognition dictation system. Departure Departure: Impression: Primary Impression: Migraine Disposition: HOME, SELF-CARE Condition: STABLE Referrals: PCP,NO (PCP) Patient Instructions: Form - Excuse from Work, School, or Physical Activity, Migraine Headache Scripts Ondansetron Hcl (ZOFRAN) 4 Mg Tablet 4 MG PO Q6HRS PRN for NAUSEA, #12 TAB Prov: LORENZA MEIER Jr. DO 09/21/18 Butalbital/Aspirin/Caffeine (FIORINAL 50-325-40 MG CAPSULE) 1 Each Capsule 1 EACH PO Q6HRS PRN for HEADACHE, #20 CAP Prov: LORENZA MEIER Jr. DO 09/21/18 Problem Qualifiers Primary Impression: Migraine Migraine type: without aura Status migrainosus presence: with status migrainosus Intractability: not intractable Qualified Codes: G43.001 - Migraine without aura, not intractable, with status migrainosus LORENZA MEIER Jr. DO Sep 21, 2018 00:08
[2018-09-21] MEDS ORDERED: BUTA1CAP31 PO (00:13)
[2018-09-21] MEDS ORDERED: ONDA4TAB7 PO (00:13)
== END 2018-09-21 00:25 | disposition home or self-care (01) ==
LOC: ER 21:57
DX: G43.001 Migraine without aura, not intractable, with status migrainosus (principal); Z87.440 Personal history of urinary (tract) infections; Z87.442 Personal history of urinary calculi; Z88.2 Allergy status to sulfonamides
CPT/HCPCS: 70450; 81001; 81025; 87086; 96372; 99285; J1100; J1885; J3030; Q0162

== ENCOUNTER 2020-09-13 20:54 | Emergency (ER) | payer BC, MEDICARE ==
[~2020-09-13] VITALS: Ht 165.1 cm; Wt 168.0 kg
[~2020-09-13 20:54] MED LIST changes: +BUTA1CAP31 PO; +ONDA4TAB7 PO
[2020-09-13 21:53] VITALS: BP 155/108
[2020-09-13] MEDS ORDERED: ACETAMINOPHEN 500 MG TABLET PO ONE ×2 (22:25→23:00)
[2020-09-13] MEDS ORDERED: IBUPROFEN 600 MG TABLET. PO ONE ×2 (22:25→23:00)
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
== END 2020-09-13 22:41 | disposition home or self-care (01) ==
LOC: ER 20:54
DX: R51.9 Headache, unspecified (principal); Z87.442 Personal history of urinary calculi; Z87.440 Personal history of urinary (tract) infections; Y08.89XA Assault by other specified means, initial encounter; Y93.89 Activity, other specified; Y92.89 Other specified places as the place of occurrence of the external cause; Y99.8 Other external cause status
CPT/HCPCS: 99281